=== PATIENT | male | born 1945 | race Caucasian/White ===

== ENCOUNTER 2023-01-12 10:16 | Outpatient (CLI) | payer MEDICARE, OTHER ==
[2023-01-12] MEDS ORDERED: Iopamidol 300 61% 100 ML VIAL FS ONE (12:42)
== END 2023-01-12 10:17 | disposition home or self-care (01) ==
LOC: CSHCT 10:16
PROVIDERS: ATTEND Urology
DX: R31.29 Other microscopic hematuria (principal); N28.1 Cyst of kidney, acquired
CPT/HCPCS: 74178; 82565